=== PATIENT | male | born 1985 | race Caucasian/White ===

== ENCOUNTER 2022-03-04 02:10 | Inpatient (IN) | payer MEDICAID ==
[~2022-03-04] VITALS: Ht 205.7 cm; Wt 20.9 kg
[2022-03-04] MEDS ORDERED: MAGNESIUM/ALUMINUM HYDROXIDE/SIMETHICONE 30ML UDC PO STA (02:50)
[2022-03-04] MEDS ORDERED: PANTOPRAZOLE SODIUM 40 MG/VIAL IV STA (03:00)
[2022-03-04] MEDS ORDERED: MORPHINE SULFATE 4 MG/ML CPJ (NOT FOR IM USE) IV STA (03:00)
[2022-03-04] MEDS ORDERED: SODIUM CHLORIDE 0.9% 1,000 ML IV ONE (03:00)
[2022-03-04] MEDS ORDERED: ONDANSETRON HCL 4MG/2ML INJ IV STA (03:00)
[2022-03-04 03:21] LABS: BASOPHILS % 0.5 % (0.0-2.0); EOSINOPHILS % 0.7 % (0.0-5.0); HEMATOCRIT. 46.9 % (42.0-52.0); HEMOGLOBIN. 15.9 g/dL (14.0-18.0); LYMPHOCYTES % 10.3 % (20.0-50.0); MEAN CORPUSCULAR HEMOGLOBIN 29.4 pg (28.0-32.0); MEAN CORPUSCULAR VOLUME 86.8 fL (80.0-94.0); MEAN PLATELET VOLUME 8.9 fl (7.4-10.4); MONOCYTES % 5.1 % (2.0-8.0); NEUTROPHILS % 83.4 % (40.0-76.0); PLATELET 301 x1000/uL (130-400); RED BLOOD CELL COUNT 5.41 mill/uL (4.7-6.1); RED CELL DISTRIBUTION WIDTH 13.2 % (11.6-14.6)
[2022-03-04 03:23] LABS: CHLORIDE 106 mEq/L (98-107)
[2022-03-04] MEDS ORDERED: SODIUM CHLORIDE 0.9% 1,000 ML IV SCH (10:00)
[2022-03-04] MEDS ORDERED: ACETAMINOPHEN 325MG TABLET PO PRN ×2 (10:00)
[2022-03-04] MEDS ORDERED: MORPHINE SULFATE 4 MG/ML CPJ (NOT FOR IM USE) IV PRN (10:00)
[2022-03-04] MEDS ORDERED: DIPHENHYDRAMINE 50MG/ML VIAL IV PRN (10:00)
[2022-03-04] MEDS ORDERED: ONDANSETRON HCL 4MG/2ML INJ IV PRN (10:00)
[2022-03-04] MEDS ORDERED: MAGNESIUM/ALUMINUM HYDROXIDE/SIMETHICONE 30ML UDC PO PRN (10:00)
[2022-03-04] MEDS ORDERED: NALOXONE HCL 0.4MG/ML VIAL IV PRN (10:15)
[2022-03-04 12:00] VITALS: BP 101/68
[2022-03-04 14:19] VITALS: BP 125/85
[2022-03-04 16:00] VITALS: BP 102/74
[2022-03-04] MEDS: PANTOPRAZOLE SODIUM 40 MG/VIAL IV SCH (18:03)
[2022-03-04 20:00] VITALS: BP 114/72
[2022-03-04] MEDS: DOCUSATE SODIUM 250MG CAPSULE PO SCH (23:30)
[2022-03-05] VITALS: BP 101/62
[2022-03-05 02:13] LABS: CHLORIDE 108 mEq/L (98-107)
[2022-03-05 02:24] LABS: BASOPHILS % 0.5 % (0.0-2.0); EOSINOPHILS % 2.9 % (0.0-5.0); HEMATOCRIT. 42.1 % (42.0-52.0); HEMOGLOBIN. 13.9 g/dL (14.0-18.0); LYMPHOCYTES % 39.8 % (20.0-50.0); MEAN CORPUSCULAR HEMOGLOBIN 28.7 pg (28.0-32.0); MEAN CORPUSCULAR VOLUME 87.2 fL (80.0-94.0); MEAN PLATELET VOLUME 8.4 fl (7.4-10.4); MONOCYTES % 11.7 % (2.0-8.0); NEUTROPHILS % 45.1 % (40.0-76.0); PLATELET 252 x1000/uL (130-400); RED BLOOD CELL COUNT 4.82 mill/uL (4.7-6.1); RED CELL DISTRIBUTION WIDTH 12.9 % (11.6-14.6)
[2022-03-05 04:00] VITALS: BP 99/55
[2022-03-05 07:37] LABS: BASOPHILS % 0.5 % (0.0-2.0); EOSINOPHILS % 3.5 % (0.0-5.0); HEMOGLOBIN. 14.2 g/dL (14.0-18.0); LYMPHOCYTES % 38.2 % (20.0-50.0); MEAN CORPUSCULAR HEMOGLOBIN 29.5 pg (28.0-32.0); MEAN CORPUSCULAR VOLUME 87.5 fL (80.0-94.0); MEAN PLATELET VOLUME 8.6 fl (7.4-10.4); MONOCYTES % 12.3 % (2.0-8.0); NEUTROPHILS % 45.5 % (40.0-76.0); PLATELET 258 x1000/uL (130-400); RED CELL DISTRIBUTION WIDTH 12.8 % (11.6-14.6)
[2022-03-05 07:53] LABS: CHLORIDE 108 mEq/L (98-107)
[2022-03-05] MEDS: PANTOPRAZOLE SODIUM 40 MG/VIAL IV SCH ×2 (09:47→18:07)
[2022-03-05] MEDS: DOCUSATE SODIUM 250MG CAPSULE PO SCH ×2 (09:54→18:07)
[2022-03-05 19:50] VITALS: BP 112/65
[2022-03-05 20:00] VITALS: BP 112/65
[2022-03-07 04:11] LABS: OVA & PARASITE EXAM Final report (.)
== END 2022-03-05 20:05 | disposition home or self-care (01) | DRG 249 ==
LOC: ER 02:10 → 6EST 04:57 → ENRESERV 07:30
PROVIDERS: ADMIT Internal Medicine; ATTEND Internal Medicine
DX: K52.9 Noninfective gastroenteritis and colitis, unspecified (principal); K76.0 Fatty (change of) liver, not elsewhere classified; I77.6 Arteritis, unspecified; K59.09 Other constipation; I88.0 Nonspecific mesenteric lymphadenitis; Z87.11 Personal history of peptic ulcer disease
CPT/HCPCS: 36415; 74018; 74176; 76705; 80048; 80053; 82270; 83036; 83605; 84478; 85025; 87015; 87045; 87177; 87209; 87427; 87449; 89055; 99285; C9113; J2270; J2405; J7030

== ENCOUNTER 2023-06-10 20:52 | Emergency (ER) | payer MEDICAID ==
[~2023-06-10] VITALS: Ht 170.2 cm; Wt 100.6 kg
[2023-06-10 21:00] VITALS: TEMP 98.1; O2SAT 98
[2023-06-10 21:45] LABS: BASOPHILS % 0.6 % (0.0-2.0); EOSINOPHILS % 3.3 % (0.0-5.0); HEMATOCRIT. 43.8 % (42.0-52.0); HEMOGLOBIN. 14.9 g/dL (14.0-18.0); LYMPHOCYTES % 47.8 % (20.0-50.0); MEAN CORPUSCULAR HEMOGLOBIN 29.7 pg (28.0-32.0); MEAN CORPUSCULAR HGB CONC 33.9 g/dL (31.0-37.0); MEAN CORPUSCULAR VOLUME 87.6 fL (80.0-94.0); MEAN PLATELET VOLUME 8.4 fl (7.4-10.4); MONOCYTES % 7.9 % (2.0-8.0); NEUTROPHILS % 40.4 % (40.0-76.0); PLATELET 289 x1000/uL (130-400); WHITE BLOOD COUNT 6.4 x1000/uL (4.5-11.0)
[2023-06-10 21:53] LABS: CLARITY URINE CLEAR (CLEAR); COLOR URINE YELLOW (YELLOW)
[2023-06-10 21:54] LABS: GLUCOSE URINE NEGATIVE (NEGATIVE); KETONES URINE NEGATIVE (NEGATIVE); LEUKOCYTE ESTERASE URINE NEGATIVE (NEGATIVE); NITRITE URINE NEGATIVE (NEGATIVE); OCCULT BLOOD URINE NEGATIVE (NEGATIVE); PROTEIN URINE NEGATIVE (NEGATIVE); SPECIFIC GRAVITY URINE 1.015 (1.005-1.030)
[2023-06-10 22:00] LABS: PROTHROMBIN TIME 10.3 sec (9.6-11.0)
[2023-06-10 22:01] LABS: ALANINE AMINOTRANSFERASE 34 IU/L (10-49); ALBUMIN 4.1 g/dL (3.2-4.8); ASPARTATE AMINOTRANSFERASE 27 IU/L (<34); BILIRUBIN TOTAL 0.3 mg/dL (0.1-1.0); CALCIUM 9.1 mg/dL (8.7-10.4); CARBON DIOXIDE 26 mEq/L (21-32); CHLORIDE 106 mEq/L (98-107); CREATININE 0.9 mg/dL (0.6-1.3); GLUCOSE 101 mg/dL (70-105); POTASSIUM 3.7 mEq/L (3.5-5.1); PROTEIN TOTAL 6.8 g/dL (6.0-8.3); SODIUM 141 mEq/L (136-145); UREA NITROGEN BLOOD 13 mg/dL (9-23)
[2023-06-10 22:08] LABS: TROPONIN I HIGH SENSITIVITY < 4 ng/L (3.0-53)
[2023-06-11] MEDS ORDERED: KETOROLAC 60MG/2ML VIAL IM ONE (02:15)
[2023-06-11 02:26] VITALS: BP 101/70; PULSE 61; RESP 16
== END 2023-06-11 02:28 | disposition home or self-care (01) ==
LOC: ER 20:52
DX: R07.89 Other chest pain (principal); R10.9 Unspecified abdominal pain
CPT/HCPCS: 80053; 81003; 85025; 85610; 85730; 84484; 36415; 71045; 93005; 99285; 74176; 96372; J1885; Z7610

== ENCOUNTER 2024-03-22 14:25 | Emergency (ER) | payer OTHER, MEDICAID ==
[~2024-03-22] VITALS: Ht 172.7 cm; Wt 83.0 kg
[2024-03-22 14:31] VITALS: O2SAT 100
[2024-03-22 15:38] LABS: TROPONIN I HIGH SENSITIVITY < 4 ng/L (3.0-53)
[2024-03-22] MEDS ORDERED: IBUP-2029 MT (15:41)
[2024-03-22 16:03] VITALS: BP 136/67; PULSE 68; RESP 18; TEMP 37.00296; O2SAT 100
== END 2024-03-22 16:04 | disposition home or self-care (01) ==
LOC: ER 14:25
DX: R07.89 Other chest pain (principal)
CPT/HCPCS: 36415; 71045; 84484; 93005; 99285

== ENCOUNTER 2025-01-01 10:00 | Emergency (ER) | payer MEDICAID, OTHER ==
[~2025-01-01] VITALS: Ht 170.2 cm; Wt 95.0 kg
[~2025-01-01 10:00] MED LIST: IBUP-2029 MT
[2025-01-01 10:07] VITALS: O2SAT 99
[2025-01-01] MEDS: IBUPROFEN 800MG TABLET PO ONE (11:25)
[2025-01-01] MEDS ORDERED: IBUP-2030 MT (11:44)
[2025-01-01 12:16] VITALS: BP 111/74; PULSE 64; RESP 14; TEMP 36.7; O2SAT 99
== END 2025-01-01 12:18 | disposition home or self-care (01) ==
LOC: ER 10:00
DX: S93.691A Other sprain of right foot, initial encounter (principal); Z79.899 Other long term (current) drug therapy; W18.39XA Other fall on same level, initial encounter; Y93.89 Activity, other specified; Y92.89 Other specified places as the place of occurrence of the external cause; Y99.8 Other external cause status
CPT/HCPCS: 99283; 73630; A6449